=== PATIENT | male | born 2005 | race Two or more races ===

== ENCOUNTER 2025-01-09 22:58 | Emergency (ER) | payer MEDICAID, OTHER ==
[~2025-01-09] VITALS: Ht 188 cm; Wt 66.7 kg
[2025-01-10 00:39] VITALS: BP 148/104; PULSE 98; RESP 16; TEMP 97.6; O2SAT 96
--- NOTE | 2025-01-10 00:43 | DVH ---
CLINICAL INDICATION: INJURY TECHNIQUE: 3 views XY R HAND 2 VIEW XRAY Comparison: None FINDINGS: No acute fracture or dislocation. Normal osseous mineralization. No significant degenerative change. Mild soft tissue swelling at the base of the ring digit. No radiopaque foreign body. IMPRESSION: 1. No acute osseous abnormality of the hand. Please note the marker on the AP and oblique images indicate left side, and the lateral image indicates right side.
[2025-01-10] MEDS ORDERED: IBUP-1456 PO (00:54)
--- NOTE | 2025-01-10 00:54 | ED.PDOC ---
Back pain HPI HPI Comments PT COMES WITH C/C OF RIGHT HAND PAIN, S/P FALL INJURY. OBVIOUS SWELLING AND BRUISING TO DIGIT 4 AND 5 KNUCKLES. DENIES NUMBNESS OR WEAKNESS Chief Complaint: Upper Extremity Time Seen by MD: 23:12 Reviewed Notes: Nurses Notes, Medications, Allergies Allergies: Coded Allergies: NO KNOWN ALLERGIES (Unverified , 01/09/25) Home Meds Active Scripts Ibuprofen (Ibuprofen) 800 Mg Tab, 800 MG PO Q8HP PRN for 7 Days, #21 TAB Prov:TORREY ANNE CLINICAL INFORMATICS MANAGER 01/10/25 Information Source: Patient Mode of Arrival: Ambulatory Past Medical History PAST MEDICAL HISTORY: Denies Surgical History: Denies all surgeries Family History Family History: Unknown Social History Smoker: Non-Smoker Alcohol: Denies ETOH Use Drugs: Denies Drug Use All Other Systems: Reviewed and Negative (SEE HPI) Physical Exam General Appearance: No Apparent Distress, Normal HEENT: Pharynx Normal Neck: Full Range of Motion, Non-Tender Respiratory: Lungs Clear, No Respiratory Distress, Normal Breath Sounds Cardiovascular: No Murmur, Normal Peripheral Pulses, Regular Rate/Rhythm Breast Exam: Deferred Gastrointestinal: Non Tender, Soft Genitalia: Deferred Pelvic: Deferred Rectal: Deferred Extremities: Normal capillary refill, Normal range of motion Musculoskeletal : Location: Right Extremity Location: Hand (BRUISING TO DIGIT 4 AND 5 KNUCKLES.+ CSM) Apperance: Normal Neurologic: Alert, No Motor Deficits, Normal Affect, Normal Mood, No Sensory Deficits Cerebellar Function: Normal Reflexes: NOT DONE Skin: Dry, Normal Color, Warm, Wounds (SUPERFICIAL ABRASSIONS TO DIGIT 4 AND 5 KNUCKLES) Lymphatic: No Adenopathy Was a procedure done? Was a procedure done?: No Back Pain Differential Dx Differential Diagnosis: Fracture, Musculoskeletal Pain X-Ray, Labs, Meds, VS Vital Signs Date Time Temp Pulse Resp B/P (MAP) Pulse Ox O2 Delivery O2 Flow Rate FiO2 01/10/25 00:39 97.6 98 16 148/104 (119) 96 97.6 01/09/25 23:03 97.6 101 96 143/96 96 97.6 X-Ray, Labs, Meds, VS Comment NO ACUTE FX OR DISLOCATIONS ON X-RAY. ADVISED ON RICE. NSAID. F/U W/ PCP OR ER IF NO IMPROVEMENT Images Reviewed?: Images reviewed and evaluated by me Time of 1ST Reevaluation: 23:12 Reevaluation 1ST: Unchanged Time of 2ND Reevaluation: 00:54 Reevaluation 2ND: Improved Patient Education/Counseling: Diagnosis, Treatment, Need For Follow Up Family Education/Counseling: Diagnosis, Treatment SEPSIS Sepsis Screen Date sepsis recognized/suspect: Jan 09, 2025 Time Sepsis recognized/suspect: 2305 Recent Procedure: No On Antibiotic Therapy: No Respiratory Rate >20: No Heart Rate >90: No Temp<36 C (96.8 F) or >38.3 C: No SBP <90 or MAP <65 mmHG: No New Acute Mental Status Change: No Is the patient on CPAP, BIPAP,: No Physician Orders R Hand 2 View Xray (01/09/25 23:09) Vital Signs Date Time Temp Pulse Resp B/P (MAP) Pulse Ox O2 Delivery O2 Flow Rate FiO2 01/10/25 00:39 97.6 98 16 148/104 (119) 96 97.6 01/09/25 23:03 97.6 101 96 143/96 96 97.6 Departure 1 Departure Time of Disposition: 00:53 Impression: Primary Impression: Contusion of hand Qualified Codes: S60.221A - Contusion of right hand, initial encounter Disposition: HOME / SELF CARE / HOMELESS Condition: Stable e-Prescriptions Ibuprofen (Ibuprofen) 800 Mg Tab 800 MG PO Q8HP PRN for 7 Days, #21 TAB Prov: TORREY ANNE 01/10/25 Discharged With: Significant Other Critical Care Note Critical Care Time?: No Stability Stability form required: TORREY Martinez Jan 10, 2025 00:54
[2025-01-10] MEDS: OXYCODONE W/ ACETAMINOPHEN 5/325MG TABLET PO ONE (01:04)
[2025-01-10] MEDS: KETOROLAC TROMETH 60MG/2ML VIAL IM ONE (01:07)
== END 2025-01-10 01:10 | disposition home or self-care (01) ==
LOC: ER 22:58
DX: S60.221A Contusion of right hand, initial encounter (principal); Z79.899 Other long term (current) drug therapy; W19.XXXA Unspecified fall, initial encounter; Y93.89 Activity, other specified; Y92.89 Other specified places as the place of occurrence of the external cause; Y99.8 Other external cause status
CPT/HCPCS: 73120; J1885